=== PATIENT | male | born 1950 | race American Indian/Alaskan Native ===

== ENCOUNTER 2017-02-05 06:56 | Day surgery (SDC) | payer MEDICARE ==
[2017-02-05] MEDS ORDERED: NACL 0.9% 500 ML 500 ML ONE (07:58)
[2017-02-05] MEDS ORDERED: NACL 0.9% 500 ML 500 ML IV SCH (08:00)
[2017-02-05 08:09] VITALS: BP 121/61
[2017-02-05 08:10] LABS: Hematocrit 31.1 % (35.5-45.6); Hemoglobin 10.2 gm/dl (11.8-15.2); Mean Corpuscular HGB Conc 33 % (32-34); Mean Corpuscular Volume 77 fl (84-94); Red Blood Count 4.05 M/mm3 (3.65-5.03); Red Cell Distribution Width 17.3 % (13.2-15.2)
[2017-02-05 08:12] LABS: Mean Corpuscular Hemoglobin 25 pg (28-32); Platelet Count 60 K/mm3 (140-440); White Blood Count 1.6 K/mm3 (4.5-11.0)
[2017-02-05 08:19] LABS: INR 1.2 (0.87-1.13)
[2017-02-05 08:36] LABS: Anion Gap 16 mmol/L; BUN/Creatinine Ratio 14.16; Blood Urea Nitrogen 17 mg/dL (9-20); Calcium 8.2 mg/dL (8.4-10.2); Carbon Dioxide 24 mmol/L (22-30); Chloride 105.4 mmol/L (98-107); Glucose 135 mg/dL (75-100); Potassium 4.6 mmol/L (3.6-5.0); Sodium 141 mmol/L (137-145)
[2017-02-05] MEDS ORDERED: BABY ASPIRIN PO ONE (08:59)
[2017-02-05] MEDS ORDERED: PLAVIX PO ONE (09:00)
[2017-02-05 09:58] LABS: Basophils % (Manual) 0 % (0.0-1.8); Blastocytes % (Manual) 0 %
[2017-02-05 09:59] LABS: Anisocytosis 1+; Diff Status Complete; Hypochromasia 1+; Platelet Estimate Consistent w Auto
[2017-02-05] MEDS ORDERED: PLAVIX PO SCH (10:00)
--- NOTE | 2017-02-05 10:44 | Event Note ---
Date: 02/05/17 Patient was referred for outpatient PCI of the RCA. Pre-cath labs show a severe thrombocytopenia, Plt 60,000. 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 A review of his prior labs show that Plt was 73,000 in 11/2016. Due to severe thrombocytopenia, he is NOT a candidate for elective PCI. Procedure cancelled, patient will be discharged, I will discuss options for further management with his primary wound care nurse.
== END 2017-02-05 10:45 | disposition home or self-care (01) ==
LOC: CATHLABREC 06:56
PROVIDERS: ATTEND Internal Medicine Cardiovascular Disease
DX: I25.10 Atherosclerotic heart disease of native coronary artery without angina pectoris (principal); D69.6 Thrombocytopenia, unspecified; I10 Essential (primary) hypertension; E78.5 Hyperlipidemia, unspecified; E11.9 Type 2 diabetes mellitus without complications; Z79.82 Long term (current) use of aspirin; Z79.899 Other long term (current) drug therapy; Z79.4 Long term (current) use of insulin; Z79.01 Long term (current) use of anticoagulants; Z86.73 Personal history of transient ischemic attack (TIA), and cerebral infarction without residual deficits; Z87.891 Personal history of nicotine dependence; Z98.890 Other specified postprocedural states; Z87.19 Personal history of other diseases of the digestive system; Z86.2 Personal history of diseases of the blood and blood-forming organs and certain disorders involving the immune mechanism; Z82.49 Family history of ischemic heart disease and other diseases of the circulatory system; Z53.8 Procedure and treatment not carried out for other reasons
CPT/HCPCS: 36415; 80048; 85007; 85025; 85610; 85730; 93005; 93010; J7040